=== PATIENT | female | born 1970 ===

== ENCOUNTER 2018-01-12 22:34 | Emergency (ER) | payer SELFPAY ==
[2018-01-13] VITALS: RESP 16; O2SAT 100
--- NOTE | 2018-01-13 00:38 | C.PDOC ---
History Of Present Illness 47 y/o female presents to the ED complaining of nausea, vomiting, and abdominal pain for the past 2 days. Also reports decreased PO intake. Otherwise she denies any fever, chills, chest pain, SOB, or diarrhea. Time Seen by Provider: 01/13/18 00:37 Chief Complaint (Nursing): Abdominal Pain History Per: Patient History/Exam Limitations: no limitations Onset/Duration Of Symptoms: Days Current Symptoms Are (Timing): Still Present Severity: Moderate Pain Scale Rating Of: 4 Location Of Pain/Discomfort: Diffuse Associated Symptoms: Nausea, Vomiting Alleviating Factors: None Abnormal Vaginal Bleeding: No Past Medical History Reviewed: Historical Data, Nursing Documentation, Vital Signs Vital Signs: Last Vital Signs Temp 98.8 F 01/12/18 23:54 Pulse 88 01/12/18 23:54 Resp 16 01/12/18 23:54 BP 148/97 H 01/12/18 23:54 Pulse Ox 100 01/12/18 23:54 Surgical History: No Surg Hx Family History: States: No Known Family Hx - Social History Hx Tobacco Use: No Hx Alcohol Use: No Hx Substance Use: No - Immunization History Hx Tetanus Toxoid Vaccination: No Hx Influenza Vaccination: No Hx Pneumococcal Vaccination: No Review Of Systems Constitutional: Negative for: Fever, Chills Cardiovascular: Negative for: Chest Pain Respiratory: Negative for: Cough, Shortness of Breath Gastrointestinal: Positive for: Nausea, Vomiting, Abdominal Pain. Negative for: Diarrhea Genitourinary: Negative for: Dysuria, Frequency, Hematuria Physical Exam - Physical Exam Appears: Non-toxic, In Acute Distress (appears to be in moderate pain) Skin: Warm, Dry Head: Normacephalic Eye(s): bilateral: Normal Inspection Oral Mucosa: Moist Neck: Trachea Midline, Supple Chest: Symmetrical Cardiovascular: Rhythm Regular Respiratory: No Rales, No Rhonchi, No Wheezing Gastrointestinal/Abdominal: Bowel Sounds (active), Soft, Tenderness (Diffuse abdominal tenderness, especially RLQ with mild rebound), No Distention Back: No CVA Tenderness Extremity: Bilateral: Atraumatic, Normal Color And Temperature Pulses: Left Dorsalis Pedis: Normal, Right Dorsalis Pedis: Normal Neurological/Psych: Oriented x3 ED Course And Treatment - Laboratory Results Result Diagrams: 01/13/18 01:02 01/13/18 01:02 O2 Sat by Pulse Oximetry: 100 (RA) Pulse Ox Interpretation: Normal - CT Scan/US CT abd/pelvis Other Rad Studies (CT/US): Read By Radiologist CT/US Interpretation: Name:HENRIK ACOSTA Exam Date:Jan 13, 2018 2:49:54 AM EDT. Modality Type:CT\SR. Description:CT - ABDOMEN AND PELVIS WITH CORONAL AND SAGITTAL MPRS. Gender:F Laterality:Not applicable. :68 Referring Physician:Mercedes Lundy). CT SCAN OF THE ABDOMEN AND PELVIS WITH CONTRAST. CLINICAL HISTORY: Abdominal pain. TECHNIQUE: Multiple axial and coronal CT images were obtained through the abdomen and pelvis after administration of intravenous and oral contrast mater ial. COMMENTS: Uncomplicated colonic diverticulosis. The liver is of uniform attenuation without mass or defect. There is no intra or extrahepatic biliary ductal dilatation. The spleen is normal. The gallbladder is within normal limits. The pancreas is of normal contour and attenuation characteristics. There is no evidence of adrenal mass. Both kidneys demonstrate prompt and equal nephrograms. The kidneys are normal in size, shape and configuration. There is no evidence of renal or ureteral mass. No renal or ureteral calculi are identified. There is no hydroureter or hydronephrosis. No evidence for appendicitis. There is no bowel wall thickening. No evidence for small or large bowel obstruction. There is no evidence of abdominal ascites or lymphadenopathy. There is no evidence of intrinsic or extrinsic bladder mass. There is no pelvic ascites or lymphadenopathy. Images of the lung bases show no evidence of pleural or parenchymal mass. There are no pleural effusions. The bony structures are free of lytic or blastic lesions. IMPRESSION: Normal appendix. No evidence of acute abdominal or pelvic pathology. Progress Note: Labs done. IV fluids, Zofran, and Pepcid administered. Pending CT abd/pelvis with IV contrast. Reevaluation Time: 04:58 Reassessment Condition: Improved Disposition Counseled Patient/Family Regarding: Studies Performed, Diagnosis, Need For Followup, Rx Given - Disposition Referrals: [facility] [Outside] [facility] [Outside] Disposition: HOME/ ROUTINE Disposition Time: 00:38 Condition: FAIR Additional Instructions: Por favor regrese si los sntomas recurren. Prescriptions: Nitrofurantoin Macrocrystals [Macrobid] 1 cap PO BID #14 cap Ondansetron ODT [Zofran ODT] 1 odt PO BID PRN #10 odt PRN Reason: Nausea/Vomiting Instructions: Acute Abdomen (Belly Pain), Adult (DC), Diverticulosis (DC), Constipation, Adult (DC), Urinary Tract Infection, Adult (DC) Forms: [employer] (Yakut) Print Language: TUVALUAN - Clinical Impression Clinical Impression: Abdominal pain, Constipation, UTI (urinary tract infection), Diverticulosis - Scribe Statement The provider has reviewed the documentation as recorded by the Scribe (Terri Matute) Provider Attestation: All medical record entries made by the Scribe were at my direction and personally dictated by me. I have reviewed the chart and agree that the record accurately reflects my personal performance of the history, physical exam, medical decision making, and the department course for this patient. I have also personally directed, reviewed, and agree with the discharge instructions and disposition.
[2018-01-13] MEDS ORDERED: Sodium Chloride 0.9% 1,000 ML IV ONE (00:39)
[2018-01-13] MEDS ORDERED: Sodium Chloride 0.9% 1,000 ML ONE (01:11)
[2018-01-13 01:12] LABS: PROTHROMBIN TIME 11.4 SECONDS (9.7-12.2)
[2018-01-13 01:13] LABS: BASO # 0.1 K/uL (0.0-0.2); BASO % 0.8 % (0.0-2.0); EOS % 0.4 % (0.0-4.0); HEMOGLOBIN 13.4 g/dL (11.0-16.0); LYMPH # 1.4 K/uL (1.0-4.3); LYMPH % 18.3 % (20.0-40.0); MEAN CELL VOLUME 90.7 fL (81.0-99.0); MEAN CORPUSCULAR HEMOGLOBIN 29.7 pg (27.0-31.0); MEAN CORPUSCULAR HGB CONC 32.7 g/dL (33.0-37.0); MEAN PLATELET VOLUME 7.5 fL (7.2-11.7); MONO # 0.5 K/uL (0.0-0.8); MONO % 6.1 % (0.0-10.0); NEUT # 5.7 K/uL (1.8-7.0); NEUT % 74.4 % (50.0-75.0); NRBC % 0.1 % (0.0-2.0); RBC 4.53 Mil/uL (3.80-5.20); RED CELL DISTRIBUTION WIDTH 13.9 % (11.5-14.5); WHITE BLOOD COUNT 7.7 K/uL (4.8-10.8)
[2018-01-13 01:14] LABS: HCG,QUALITATIVE URINE NEGATIVE (NEGATIVE)
[2018-01-13 01:16] LABS: SQUAMOUS EPITHIAL 2 /hpf (0-5); URINE BILIRUBIN NEGATIVE (NEGATIVE); URINE BLOOD 1+ (NEGATIVE); URINE CLARITY Clear (Clear); URINE COLOR Straw (YELLOW); URINE GLUCOSE (UA) NORMAL (Normal); URINE LEUKOCYTE ESTERASE 2+ Leu/uL (Negative); URINE PROTEIN NEGATIVE (NEGATIVE); URINE UROBILINOGEN NORMAL mg/dL (0.2-1.0)
[2018-01-13 01:32] LABS: ALB/GLOB RATIO 1.2 (1.0-2.1); ALBUMIN 4.6 g/dL (3.5-5.0); ALT/SGPT 172 U/L (9-52); AST/SGOT 52 U/L (14-36); BLOOD UREA NITROGEN 9 mg/dL (7-17); GFR NON-AFRICAN AMERICAN > 60; LIPASE 93 U/L (23-300)
[2018-01-13] MEDS ORDERED: Iodixanol 320 MG/ML 100 ML BOTTLE IV ONE (02:03)
[2018-01-13 04:23] VITALS: BP 118/77; PULSE 75; TEMP 98.4
--- NOTE | 2018-01-13 08:08 | CT ---
Date of service: 01/13/2018 PROCEDURE: CT Abdomen and Pelvis without intravenous contrast HISTORY: Right lower quadrant abdominal pain COMPARISON: None. TECHNIQUE: Multiple contiguous axial images were performed through the abdomen and pelvis with the use of intravenous contrast. Subsequently, sagittal and coronal reformatted images were obtained. Radiation dose: Total exam DLP = 304 mGy-cm. This CT exam was performed using one or more of the following dose reduction techniques: Automated exposure control, adjustment of the mA and/or kV according to patient size, and/or use of iterative reconstruction technique. FINDINGS: LOWER THORAX: Unremarkable. LIVER: Focal area of low attenuation measuring 1.8 centimeters seen within the medial right hepatic lobe adjacent to the ligamentum teres best seen on series 3, image 38 which may represent some focal fatty sparing. Additional etiologies not excluded. This may be better evaluated with multiphasic CT scan if clinically indicated. GALLBLADDER AND BILE DUCTS: Unremarkable. PANCREAS: Unremarkable. No gross lesion or ductal dilatation. SPLEEN: Unremarkable. ADRENALS: Unremarkable. No mass. KIDNEYS AND URETERS: Unremarkable. No hydronephrosis. No solid mass. VASCULATURE: Unremarkable. No aortic aneurysm. BOWEL: Unremarkable. No obstruction. No gross mural thickening. Diverticulosis. APPENDIX: Unremarkable. Normal appendix. PERITONEUM: Unremarkable. No free fluid. No free air. LYMPH NODES: Unremarkable. No enlarged lymph nodes. BLADDER: Unremarkable. REPRODUCTIVE: 2.2 centimeters left adnexal cyst. BONES: No acute fracture. OTHER FINDINGS: 1.5 centimeter soft tissue nodule seen within the subcutaneous soft tissues abutting the skin at the level of the anterolateral right hemipelvis at the level of the proximal right femur best seen on series 2, image 72, nonspecific. Clinical correlation. IMPRESSION: Negative acute. Focal area of low attenuation measuring 1.8 centimeters seen within the medial right hepatic lobe adjacent to the ligamentum teres best seen on series 3, image 38 which may represent some focal fatty sparing. Additional etiologies not excluded. This may be better evaluated with multiphasic CT scan if clinically indicated. Diverticulosis. 2.2 centimeters left adnexal cyst. Correlation with pelvic ultrasound may be helpful if clinically indicated. 1.5 centimeter soft tissue nodule seen within the subcutaneous soft tissues abutting the skin at the level of the anterolateral right hemipelvis at the level of the proximal right femur best seen on series 2, image 72, nonspecific. Clinical correlation. Additional findings as above. These findings were preliminarily reported at 4:40 a.m. on 01/13/[address] Meron Bass from [facility].
== END 2018-01-13 05:06 | disposition home or self-care (01) ==
LOC: C.ER 22:34
DX: K59.00 Constipation, unspecified (principal); N39.0 Urinary tract infection, site not specified; K57.30 Diverticulosis of large intestine without perforation or abscess without bleeding; R10.31 Right lower quadrant pain
CPT/HCPCS: 74177; 80053; 81001; 83690; 84703; 85025; 85610; 85730; 96361; 96374; 96375; 99284; J1885; J2405; J7030; Q9967

== ENCOUNTER 2018-03-16 13:34 | Emergency (ER) | payer OTHER ==
[2018-03-16 13:49] VITALS: BMI 21.6
[2018-03-16 13:53] VITALS: BP 131/88; PULSE 83; RESP 18; TEMP 98.4; O2SAT 98
--- NOTE | 2018-03-16 15:12 | C.PDOC ---
History Of Present Illness 47 y/o female presents to the ED for evaluation of back pain and right leg pain s/p fall 2 months ago. Since the fall, patient reports pain to the low back, right hip, and right knee. She complains of difficulty ambulating due to the pain, which is worse over the last month. States sometimes her right leg falls asleep. Otherwise patient denies fever, chills, incontinence, or other complaints. Tried taking Tylenol at home with minimal relief. Time Seen by Provider: 03/16/18 14:04 Chief Complaint (Nursing): Back Pain History Per: Patient History/Exam Limitations: no limitations Onset/Duration Of Symptoms: Days Current Symptoms Are (Timing): Still Present Associated Symptoms: New Numbness Exacerbating Factor(s): Movement Past Medical History Reviewed: Historical Data, Nursing Documentation, Vital Signs Vital Signs: Last Vital Signs Temp 98.4 F 03/16/18 13:49 Pulse 83 03/16/18 13:49 Resp 18 03/16/18 13:49 BP 131/88 03/16/18 13:49 Pulse Ox 98 03/16/18 13:49 - Medical History PMH: No Chronic Diseases Surgical History: No Surg Hx Family History: States: No Known Family Hx - Social History Hx Tobacco Use: No Hx Alcohol Use: No Hx Substance Use: No - Immunization History Hx Tetanus Toxoid Vaccination: No Hx Influenza Vaccination: No Hx Pneumococcal Vaccination: No Review Of Systems Constitutional: Negative for: Fever, Chills Genitourinary: Negative for: Dysuria, Frequency, Incontinence Musculoskeletal: Positive for: Back Pain, Leg Pain Neurological: Positive for: Numbness (right leg occasional numbness) Physical Exam - Physical Exam Appears: Non-toxic, No Acute Distress Skin: Warm, Dry Head: Atraumatic, Normacephalic Eye(s): bilateral: Normal Inspection, PERRL, EOMI Oral Mucosa: Moist Neck: Normal ROM Chest: Symmetrical Back: No Vertebral Tenderness, Paraspinal Tenderness (minimal tenderness to right paralumbar region), No Straight Leg Raising (bilaterally) Extremity: No Tenderness (to the right hip, knee, or ankle), No Deformity, No Swelling, Other (ROM of right leg is decreased secondary to pain) Pulses: Left Dorsalis Pedis: Normal, Right Dorsalis Pedis: Normal Neurological/Psych: Oriented x3, Normal Speech, No Normal Sensation (Sensation is mildly decreased in the right leg per patient) Gait: Other (able to ambulate, slowly, secondary to right leg pain) ED Course And Treatment O2 Sat by Pulse Oximetry: 98 (RA) Pulse Ox Interpretation: Normal - Other Rad Lumbar spine X-Ray: Read By Radiologist Interpretation: Unremarkable R hip X-Ray: Read By Radiologist Interpretation: Unremarkable R knee X-Ray: Read By Radiologist Interpretation: Unremarkable Medical Decision Making Medical Decision Making: Impression: Low back pain, Right leg numbness Plan: --Right knee x-ray --LS spine x-ray --Right hip/pelvis x-ray --60 mg IM Toradol --5 mg PO Valium On re-evaluation, patient reports improvement in pain. She is able to ambulate. X ray results discussed with patient. Will write Rx for ibuprofen and valium. Advised following up with PMD or returning to the ED should symptoms significantly worsen. Disposition - Disposition Disposition: HOME/ ROUTINE Disposition Time: 17:00 Condition: GOOD Additional Instructions: ARGENIS CHESTER, thank you for letting us take care of you today. Your provider was Tashia William MD and you were treated for BACK PAIN. The emergency medical care you received today was directed at your acute symptoms. If you were prescribed any medication, please fill it and take as directed. It may take several days for your symptoms to resolve. Return to the Emergency Department if your symptoms worsen, do not improve, or if you have any other problems. Please contact your doctor or call one of the physicians/clinics you have been referred to that are listed on the Patient Visit Information form that is included in your discharge packet. Bring any paperwork you were given at discharge with you along with any medications you are taking to your follow up visit. Our treatment cannot replace ongoing medical care by a primary care provider outside of the emergency department. Thank you for allowing the [facility] team to be part of your care today. If you had an X-Ray or CT scan: A Radiologist will review the ED reading if any change in treatment is needed we will contact you. If you had a blood, urine, or wound culture: It will take several days for the results, if any change in treatment is needed we will contact you. If you had an STI test: It will take 48 hours for the results. Please call after 1 week if you have not heard back. Prescriptions: diaZEpam [Valium] 5 mg PO BID PRN #9 tab PRN Reason: Muscle Spasm RX: Ibuprofen [Motrin Tab] 600 mg PO TID PRN #15 tab PRN Reason: Pain, Moderate (4-7) Instructions: Low Back Pain (DC) Forms: [employer] (Gabonese) Print Language: MALAY - Clinical Impression Clinical Impression: Low back pain - Scribe Statement The provider has reviewed the documentation as recorded by the Torres Matute Provider Attestation: All medical record entries made by the Torres were at my direction and personally dictated by me. I have reviewed the chart and agree that the record accurately reflects my personal performance of the history, physical exam, medical decision making, and the department course for this patient. I have also personally directed, reviewed, and agree with the discharge instructions and disposition.
--- NOTE | 2018-03-16 16:33 | RAD ---
Date of service: 03/16/2018 PROCEDURE: Right Knee Radiographs. HISTORY: knee pain, fell two months ago COMPARISON: None. FINDINGS: BONES: Normal. No fracture. JOINTS: Normal. No osteoarthritis. JOINT EFFUSION: None. OTHER FINDINGS: None. IMPRESSION: Normal radiographs of the right knee.
--- NOTE | 2018-03-16 16:34 | RAD ---
Date of service: 03/16/2018 PROCEDURE: Pelvis and right hip HISTORY: hip pain, fell 2 months ago COMPARISON: None TECHNIQUE: Standard protocol for this study/examination. FINDINGS: There are no osseous abnormalities to suggest fracture. The pelvic ring is intact. Preserved femoral-acetabular relationship. Negative study for protrusio, subluxation or dislocation. Degenerative changes: No significant degenerative change. IMPRESSION: No significant or acute findings to account for/ related to the clinical presentation.
--- NOTE | 2018-03-16 16:35 | RAD ---
Date of service: She 03/16/2018 PROCEDURE: Radiographs of the Lumbar Spine. HISTORY: back pain COMPARISON: No prior. FINDINGS: BONES: Normal alignment. No listhesis. No fracture. DISC SPACES: Unremarkable. OTHER FINDINGS: None. IMPRESSION: Unremarkable radiographs of the lumbar spine.
== END 2018-03-16 17:06 | disposition home or self-care (01) ==
LOC: C.ER 13:34
DX: M54.5 Low back pain (principal)
CPT/HCPCS: 72100; 73502; 73562; 96372; 99284; J1885